=== PATIENT | male | born 1955 | race Caucasian/White ===

== ENCOUNTER 2017-08-14 09:30 | Outpatient (RCR) | payer BC, SELFPAY | END 2017-08-14 09:31 | disposition home or self-care (01) | LOC: PT 09:30 | PROVIDERS: PCP Emergency Medicine; Visit Provider Orthopaedic Surgery | DX: Z74.09 Other reduced mobility (principal); Z96.642 Presence of left artificial hip joint | CPT/HCPCS: 97010; 97014; 97110; G0283 ==

== ENCOUNTER → 2018-04-12 11:04 | Outpatient (CLI) | payer BC, SELFPAY ==
[2018-04-12 11:18] LABS: Creatinine,Urine Random 271 mg/dL (20-320)
[2018-04-12 12:21] LABS: Anion Gap 12.5 mEq/L (5-15); Blood Urea Nitrogen 20 mg/dL (7-18); Calcium 8.8 mg/dL (8.5-10.1); Carbon Dioxide 26 mmol/L (21.0-32.0); Chloride 106 mmol/L (98-107); Chol/HDL Ratio 3.2 (1-3.5); Cholesterol 156 mg/dL (140-200); Creatinine,Serum 1.01 mg/dL (0.70-1.30); Estimated Glomerular Filt Rate 75 ml/min (>60); GFR (African American) 91 ML/MIN (>60); Glucose 107 mg/dL (74-106); HDL Cholesterol 49 mg/dL (27-67); LDL Cholesterol 76 mg/dL (0-130); Potassium 4.5 mmoL/L (3.5-5.1); Sodium 140 mmol/L (136-145); Thyroid Stimulating Hormone 1.12 uIU/ml (0.358-3.740); Triglycerides 156 mg/dL (30-200); VLDL Cholesterol 31 mg/dL (0-40)
[2018-04-14 21:48] LABS: Microalbumin, Urine 5.9 ug/mL (Not Estab.)
== END ==
PROVIDERS: Visit Provider Family Medicine
DX: I10 Essential (primary) hypertension (principal)
CPT/HCPCS: 36415; 80048; 80061; 82043; 82570; 84443

== ENCOUNTER 2018-04-26 14:00 | Outpatient (RCR) | payer BC, MEDICARE, SELFPAY | END 2018-04-26 14:05 | disposition home or self-care (01) | LOC: OT 14:00 | PROVIDERS: Visit Provider Orthopaedic Surgery | DX: S46.219A Strain of muscle, fascia and tendon of other parts of biceps, unspecified arm, initial encounter (principal); S43.431D Superior glenoid labrum lesion of right shoulder, subsequent encounter; M75.111 Incomplete rotator cuff tear or rupture of right shoulder, not specified as traumatic; M25.811 Other specified joint disorders, right shoulder | CPT/HCPCS: 97014; 97110; 97140; 97164; 97165; G0283 ==

== ENCOUNTER → 2020-04-06 09:38 | Outpatient (CLI) | payer BC, MEDICARE, SELFPAY ==
[2020-04-06 10:18] LABS: Creatinine,Urine Random 306 mg/dL (Not Estab.)
[2020-04-06 10:21] LABS: Microalbumin/Creatinine Ratio 2.1
[2020-04-06 10:32] LABS: Chloride 107 mmol/L (98-107); Sodium 138 mmol/L (136-145)
[2020-04-06 10:33] LABS: Potassium 4.9 mmoL/L (3.5-5.1)
[2020-04-06 10:35] LABS: Alanine Aminotransferase 30 U/L (12-78); Albumin Level 4.4 g/dl (3.5-5.0); Albumin/Globulin Ratio 1.4 (1.1-1.8); Alkaline Phosphatase 94 U/L (38-126); Anion Gap 11.9 mEq/L (5-15); Aspartate Amino Transferase 29 U/L (17-59); Blood Urea Nitrogen 23 mg/dl (9-20); Carbon Dioxide 24 mmol/L (22.0-30.0); Estimated Glomerular Filt Rate 67 ml/min (>60); GFR (African American) 82 ML/MIN (>60); Globulin 3.2 g/dL (1.3-3.2); Total Protein,Serum 7.6 g/dl (6.3-8.2)
[2020-04-06 10:36] LABS: Calcium 9.6 mg/dl (8.4-10.2); Chol/HDL Ratio 3.5 (1-3.5); Cholesterol 170 mg/dl (140-200); Glucose 106 mg/dl (74-100); HDL Cholesterol 49 mg/dl (40-60); Triglycerides 151 mg/dl (30-150); VLDL Cholesterol 30 mg/dL (0-40)
[2020-04-06 10:53] LABS: Direct LDL Cholesterol 94.83 mg/dL (100-129)
[2020-04-06 11:06] LABS: Thyroid Stimulating Hormone 1.41 uIU/mL (0.465-4.68)
== END ==
PROVIDERS: Visit Provider Family Medicine
DX: I10 Essential (primary) hypertension (principal)
CPT/HCPCS: 36415; 80053; 80061; 82043; 82570; 84443

== ENCOUNTER 2021-02-18 09:00 | Outpatient (RCR) | payer MEDICARE, SELFPAY | END 2021-02-18 09:05 | disposition home or self-care (01) | LOC: PT 09:00 | PROVIDERS: PCP Emergency Medicine; Visit Provider Physician Assistant Surgical | DX: M25.531 Pain in right wrist (principal); M25.532 Pain in left wrist; M18.11 Unilateral primary osteoarthritis of first carpometacarpal joint, right hand; M19.031 Primary osteoarthritis, right wrist; M19.032 Primary osteoarthritis, left wrist | CPT/HCPCS: 97035; 97110; 97163 ==

== ENCOUNTER → 2021-03-11 09:15 | Outpatient (CLI) | payer MEDICARE, SELFPAY ==
[2021-03-11 10:16] LABS: Creatinine,Urine Random 216 mg/dL (Not Estab.); Microalbumin/Creatinine Ratio 19.7
[2021-03-11 10:27] LABS: Chloride 104 mmol/L (98-107); Sodium 139 mmol/L (136-145)
[2021-03-11 10:28] LABS: Potassium 4.9 mmoL/L (3.5-5.1)
[2021-03-11 10:30] LABS: Blood Urea Nitrogen 22 mg/dl (9-20); Estimated Glomerular Filt Rate 67 ml/min (>60); GFR (African American) 81 ML/MIN (>60)
[2021-03-11 10:31] LABS: Anion Gap 11.9 mEq/L (5-15); Calcium 9.3 mg/dl (8.4-10.2); Carbon Dioxide 28 mmol/L (22.0-30.0); Chol/HDL Ratio 3.3 (1-3.5); Cholesterol 169 mg/dl (140-200); Glucose 103 mg/dl (74-100); HDL Cholesterol 51 mg/dl (40-60); Triglycerides 120 mg/dl (30-150); VLDL Cholesterol 24 mg/dL (0-40)
[2021-03-11 10:42] LABS: Direct LDL Cholesterol 98.13 mg/dL (100-129)
[2021-03-11 11:02] LABS: Thyroid Stimulating Hormone 1.74 uIU/mL (0.465-4.68)
== END ==
PROVIDERS: Visit Provider Family Medicine
DX: I10 Essential (primary) hypertension (principal)
CPT/HCPCS: 36415; 80048; 80061; 82043; 82570; 84443

== ENCOUNTER 2024-08-20 08:16 | Outpatient (CLI) | payer MEDICARE, SELFPAY ==
--- NOTE | 2024-08-20 08:21 | XR_ITS ---
FINAL REPORT CLINICAL HISTORY: Hand pain x 6 months COMPARISON: None FINDINGS: RIGHT HAND Three views demonstrate no acute fracture or dislocation. There is mild to moderate DIP and PIP joint space narrowing. There are moderate hypertrophic changes of the basilar joint. This pattern is consistent with osteoarthritis. There is a 7 mm well-corticated ossific density adjacent to the radial styloid. This is probably due to a sequela of old trauma. The soft tissues are unremarkable. IMPRESSION: Moderate osteoarthritis. Reviewed, Interpreted and Dictated by Kosta Danielle MD Transcribed by Selam Boles Authenticated and [facility]
--- NOTE | 2024-08-20 08:21 | XR_ITS ---
FINAL REPORT CLINICAL HISTORY: Hand pain, arthritis x 6 months COMPARISON: None FINDINGS: LEFT HAND Three views demonstrate no acute fracture or dislocation. There is mild to moderate DIP and PIP joint space narrowing. There are mild hypertrophic changes of the basilar joint. This pattern is consistent with osteoarthritis. The soft tissues are unremarkable. IMPRESSION: Mild osteoarthritis. Reviewed, Interpreted and Dictated by Kosta Danielle MD Transcribed by Selam Bloes Authenticated and [facility]
== END 2024-08-20 23:59 | disposition home or self-care (01) ==
LOC: RAD 08:17
PROVIDERS: PCP Family Medicine; Visit Provider Physician Assistant Surgical
DX: M19.042 Primary osteoarthritis, left hand (principal); M19.041 Primary osteoarthritis, right hand
CPT/HCPCS: 73130